=== PATIENT | female | born 1995 | race Caucasian/White ===

== ENCOUNTER 2017-10-05 11:55 | Emergency (ER) | payer OTHER ==
[~2017-10-05] VITALS: Ht 167.6 cm; Wt 95.3 kg
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
[2017-10-05] MEDS ORDERED: LEVO1TAB29 PO (12:11)
[2017-10-05] MEDS ORDERED: LISD10CA (12:11)
[2017-10-05] MEDS ORDERED: ESOM40CA42 PO (12:11)
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
[2017-10-05] MEDS ORDERED: APAP/HYDROCODONE 325/5 TAB PO ONE (12:55)
[2017-10-05] MEDS ORDERED: MORPHINE 4 MG/ML SYR IVP ONE (13:10)
[2017-10-05 13:20] LABS: PLATELET COUNT, AUTOMATED 311 K/uL (150-450)
[2017-10-05 13:41] LABS: INR 0.98
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
[2017-10-05] MEDS ORDERED: OXYC-865 PO (14:55)
[2017-10-05 15:00] VITALS: BP 105/65
== END 2017-10-05 15:06 | disposition home or self-care (01) ==
LOC: ER 12:19
DX: S70.02XA Contusion of left hip, initial encounter (principal); V47.1XXA Car passenger injured in collision with fixed or stationary object in nontraffic accident, initial encounter; Y93.29 Activity, other involving ice and snow; M54.5 Low back pain; R79.89 Other specified abnormal findings of blood chemistry
CPT/HCPCS: 71045; 72125; 72131; 73502; 80320; 81001; 82150; 83690; 84703; 85025; 85610; 85730; 96374; 99284; J2270; 82040; 82247; 82310; 82374; 82435; 82565; 82947; 84075; 84132; 84155; 84295; 84450; 84460; 84520